=== PATIENT | female | born 1950 | race Caucasian/White ===

== ENCOUNTER → 2021-01-07 | Outpatient (CLI) | payer MEDICARE ==
[~2021-01-07] MED LIST: IOHEXOL 180 MG/ML 10 ML VIAL. IT ONE; LIDOCAINE 1% Multi-Dose 20 ML VIAL. ID ONE
--- NOTE | 2021-01-07 10:26 | KCIC ---
EXAM: Fluoroscopic guided lumbar puncture for CT myelography; lumbar spine CT myelogram. HISTORY: Lumbar radiculopathy. TECHNIQUE: The risks of the procedure discussed with the patient and written and verbal consent was o btained. A timeout was performed. Fluoroscopic imaging of the lumbar spine was performed and a site a t L4-L5 was selected for needle entry. The skin in this location was sterilely prepped, draped and in filtrated with 1 percent lidocaine. A 22-gauge needle was advanced into the thecal space. 15 cc Omnip aque 180 intrathecal contrast was injected. The needle was removed and a sterile bandage was placed a t the needle entry site. Prone and upright neutral, flexion and extension fluoroscopic images were ob tained. The patient was transferred to the CT suite for the post injection CT portion of the exam. Th e patient tolerated the procedure without complication and was discharged in stable condition. The to gilda fluoroscopy time was 51 seconds. 4 fluoroscopic images were obtained. *One or more of the following individualized dose reduction techniques were utilized for this examina tion: 1. Automated exposure control. 2. Adjustment of the mA and/or kV according to patient size. 3. Use of iterative reconstruction technique. COMPARISON: CT dated 09/04/2020. FINDINGS: There is instrumented and noninstrumented posterior spinal fusion at L2-L5. The instrumenta tion consists of paired transpedicular screws at L2 and L3 and vertical rods extending within views p osterior elements through L5. There is no lucency surrounding the instrumentation to suggest loosenin g. No instrumentation fracture is seen. There is a left flank generator with intrathecal catheter entering the left posterior central canal a t T12-L1 and extending cephalad beyond the [id number] within the left aspect of the thecal sac. Th e conus terminates at the superior aspect of L2. There is disc space calcification at L2-L3 and L4-L5 . There are hypoplastic T12 ribs, a normal variant. There is 2 mm retrolisthesis of T11 on T12 and T12 on L1. There is mild lumbar scoliosis. There is de generative endplate remodeling with disc space narrowing, osteophytosis, Schmorl's node formation and vacuum phenomenon at T12-L1, and to a lesser extent, T11-T12. There is calcification within the disc spaces at L2-L3 and L4-L5. There is suspected bone demineralization. The recently demonstrated biliary ductal dilatation is partially obscured from the [id number]. The re are is a right iliac bone graft harvest site. There is a vacuum phenomenon involving the sacroilia c joints. There is no motion at the fused levels between flexion and extension. At T11-T12, there is a disc bulge and endplate remodeling. There is mild right and moderate left face t arthropathy. There is mild retrolisthesis. There is mild left foraminal stenosis. At T12-L1, there is a left foraminal to extra foraminal disc protrusion and osteophyte complex superi mposed on a disc bulge and endplate osteophytosis. There is mild retrolisthesis. There is mild right and moderate left foraminal stenosis. At L1-L2, there is a left lateral predominant disc bulge and endplate remodeling. There is mild later al facet arthropathy. There is mild left foraminal stenosis. At L2-L3, there is instrumented and noninstrumented fusion. There is no stenosis. At L3-L4, there is noninstrumented fusion. There is no stenosis. At L4-L5, there is noninstrumented fusion. There is no stenosis. At L5-S1, there is instrumented and noninstrumented fusion. There is no stenosis. IMPRESSION: 1. Instrumented and noninstrumented posterior spinal fusion at L2-L5, described above. There is no ev idence of instrumentation loosening. 2. 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 This is associated with mild left foraminal stenosis at T11-T12, mild right and moderate left foraminal stenosis at T12-L1 and mild left foraminal stenosis at L1-L2. No central canal stenosis is seen. Electronically signed by: Angie Darden MD (01/07/2021 10:24 AM) [id number]
== END | disposition home or self-care (01) ==
LOC: KCIC 08:51
PROVIDERS: ATTEND Neurological Surgery
DX: M47.26 Other spondylosis with radiculopathy, lumbar region (principal); M48.061 Spinal stenosis, lumbar region without neurogenic claudication; Z88.1 Allergy status to other antibiotic agents; Z88.8 Allergy status to other drugs, medicaments and biological substances
CPT/HCPCS: 62304; 72132; J3490; Q9965